=== PATIENT | male | born 1975 | race African-American/Black ===

== ENCOUNTER 2016-12-16 22:31 | Emergency (ER) | payer OTHER ==
[~2016-12-16] VITALS: Ht 180.3 cm; Wt 95.3 kg
[2016-12-16 22:40] VITALS: BP 118/70
--- NOTE | 2016-12-16 22:52 | ED GI/GU/ABDOMINAL COMPLAINT ---
History of Present Illness General Chief Complaint: Male Genitourinary Problems Stated Complaint: UNABLE TO URINATE Source: patient Exam Limitations: no limitations Vital Signs & Intake/Output Vital Signs & Intake/Output Vital Signs Date Time Temp Pulse Resp B/P Pulse O2 O2 Flow FiO2 Ox Delivery Rate 12/16 2240 98.0 78 18 118/70 98 Room Air Allergies Uncoded Allergies: Allergy Other NONE Med Allergies NONE Triage Note: UNABLE TO VOID FOR 2 DAYS TOLD BY WALK IN THAT HAS PROSTATE INFECTION Triage Nurses Notes Reviewed? yes HPI: Patient presents with urinary retention. Patient states that since yesterday evening he is only been able to force out a little bit of urine. He is not having a pressure sensation in the suprapubic area. There is no radiation. There is no aggravating or alleviating factors. There is no nausea or vomiting. No fever or chills. Patient went to walk in [place] yesterday and was diagnosed with prostatitis and was prescribed Bactrim DS. Patient took 3 doses of Bactrim so far. The pain in his area is crampy in the right as of 3 out of 10. Past History Travel History Traveled to [place] past 21 day No Medical History Any Pertinent Medical History? none Surgical History Surgical History: non-contributory Psychosocial History What is your primary language Estonian Tobacco Use: Never used ETOH Use: occasional use Illicit Drug Use: denies illicit drug use Family History Hx Contributory? No Review of Systems Review of Systems Constitutional: Reports: no symptoms. Respiratory: Reports: no symptoms. Cardiovascular: Reports: no symptoms. GI: Reports: see HPI, abdominal pain. Genitourinary: Reports: see HPI, hesitation. Musculoskeletal: Reports: no symptoms. Neurological/Psychological: Reports: no symptoms. Immunologic/Allergic: Reports: no symptoms. Physical Exam Physical Exam General Appearance: well developed/nourished, alert, awake Head: atraumatic Eyes: Bilateral: PERRL, EOMI. Respiratory: normal breath sounds, chest non-tender, no respiratory distress, lungs clear Cardiovascular: regular rate/rhythm, normal peripheral pulses Gastrointestinal: normal bowel sounds, soft, non-tender, no organomegaly Extremities: normal range of motion Neurologic/Psych: no motor/sensory deficits, awake, alert, oriented x 3, normal mood/affect Core Measures ACS in differential dx? No Severe Sepsis Present: No Septic Shock Present: No Progress Differential Diagnosis: urinary retention, UTI/pyelo Plan of Care: Orders Procedure Date/time Status Snow, Insertion/Removal/Asses 12/17 2251 Active CULTURE,URINE 12/17 2251 Active URINALYSIS 12/17 2251 Complete Laboratory Tests 12/16/160: Urine Color YEL, Urine Clarity CLEAR, Urine pH 6.0, Ur Specific [place] 1.020, Urine Protein TRACE H, Urine Ketones NEG, Urine Nitrite NEG, Urine Bilirubin NEG, Urine Urobilinogen 2.0 H, Ur Leukocyte Esterase NEG, Ur Microscopic SEDIMENT EXAMINED, Urine RBC 5-10 H, Urine WBC 1-3 H, Ur Epithelial Cells RARE , Urine Mucus FEW, Urine Hemoglobin TRACE-INTACT H, Urine Glucose NEG Microbiology 12/16 2299 URINE ROUT: Urine Culture - RECD Initial ED EKG: none Comments: Patient feels much better after Snow insertion. Departure Departure Disposition: HOME OR SELF CARE Condition: Stable Clinical Impression Primary Impression: Urinary retention Referrals: PARAS WINSTON,HARIS FRITZ MD,[place] Additional Instructions: KEEP CATHETER IN FOLLOW UP WITH DR. FRITZ RETURN FOR ANY COCNERNS Departure Forms: Customer Survey General Discharge Information
== END 2016-12-17 00:42 ==
LOC: ERH 22:31
DX: R33.9 Retention of urine, unspecified (principal)
CPT/HCPCS: 81001; 87086